=== PATIENT | male | born 1965 | race Caucasian/White ===

== ENCOUNTER 2022-09-13 13:16 | Outpatient (CLI) | payer OTHER | END 2022-09-13 13:19 | disposition home or self-care (01) | LOC: EKG 13:16 | DX: I10 Essential (primary) hypertension (principal) ==

== ENCOUNTER → 2022-09-13 | Outpatient (CLI) | payer OTHER | END | disposition home or self-care (01) | LOC: RAD 12:34 | DX: I10 Essential (primary) hypertension (principal) ==